=== PATIENT | male | born 1985 | race Caucasian/White ===

== ENCOUNTER → 2019-12-08 | Outpatient (CLI) | payer OTHER ==
--- NOTE | 2019-12-08 10:21 | FL ---
EXAMINATION TYPE: FL UGI air w small bowel DATE OF EXAM: 12/08/2019 COMPARISON: NONE HISTORY: Abdominal bloating TECHNIQUE: A double contrast UGI study is performed with small bowel follow through. FINDINGS: [employer] image of the abdomen shows no gross abnormality. 1 minute and 23 seconds of fluorosc opy and 19 images submitted. The esophagus shows normal motility and emptying into the stomach. No evidence of hiatal hernia or s tricture noted. The stomach shows normal distensibility, peristalsis, and mucosal folds. No evidence of any mass or ulcer disease. No significant esophageal reflux was seen during real time performance of this study. The duodenal bulb and sweep are unremarkable. The small bowel study shows normal transit to the colon in less than 30 minutes. There is normal muc osal fold pattern throughout the small bowel. There is no evidence of any stricture or filling defec t noted. The terminal ileum is unremarkable. IMPRESSION: Normal upper GI study and small bowel follow through.
== END | disposition home or self-care (01) ==
LOC: RADFLMAIN 08:33
PROVIDERS: ATTEND Family Medicine
DX: R10.9 Unspecified abdominal pain (principal); R14.0 Abdominal distension (gaseous); Z91.012 Allergy to eggs
CPT/HCPCS: 74240; 74248

== ENCOUNTER → 2019-12-14 | Outpatient (CLI) | payer OTHER ==
--- NOTE | 2019-12-14 11:23 | CT ---
EXAMINATION TYPE: CT abdomen pelvis w con DATE OF EXAM: 12/14/2019 COMPARISON: None HISTORY: Abdominal distention CT DLP: 3542.9 mGycm Automated exposure control for dose reduction was used. TECHNIQUE: Helical acquisition of images from the lung bases through the pelvis have been completed. CONTRAST: Performed with Oral Contrast and with IV Contrast, patient injected with 100 mL of Isovue 300. FINDINGS: LUNG BASES: No significant abnormality is appreciated. AORTA: No significant abnormality is appreciated. LIVER/GB: The liver shows low attenuation possibly due to hepatic steatosis, gallbladder is unremarka ble PANCREAS: No significant abnormality is seen. SPLEEN: Enlarged. ADRENALS: No significant abnormality is seen. KIDNEYS: No significant abnormality is seen. REPRODUCTIVE ORGANS: No significant abnormality is seen BOWEL: No significant abnormality is seen. The appendix is normal. FREE AIR: No Free Air visible. ASCITES: None visible. PELVIC ADENOPATHY: None visualized. RETROPERITONEAL ADENOPATHY: No Retroperitoneal Adenopathy visible. URINARY BLADDER: No significant abnormality is seen. OSSEOUS STRUCTURES: No significant abnormality is seen. IMPRESSION: SPLENOMEGALY, HEPATIC STEATOSIS
== END | disposition home or self-care (01) ==
LOC: RADCTMAIN 08:37
PROVIDERS: ATTEND Family Medicine
DX: K76.0 Fatty (change of) liver, not elsewhere classified (principal); R16.1 Splenomegaly, not elsewhere classified; Z91.012 Allergy to eggs
CPT/HCPCS: 74177; Q9967